=== PATIENT | female | born 1970 | race Two or more races ===

== ENCOUNTER → 2017-04-24 | Outpatient (CLI) | payer OTHER ==
[~2017-04-24] MED LIST: VENL75CA PO
== END | disposition home or self-care (01) ==
LOC: CFH 07:43
PROVIDERS: ATTEND Specialist
DX: R79.89 Other specified abnormal findings of blood chemistry (principal); C50.912 Malignant neoplasm of unspecified site of left female breast
CPT/HCPCS: 76705